=== PATIENT | male | born 1970 | race Caucasian/White ===

== ENCOUNTER 2017-10-05 17:02 | Emergency (ER) | payer OTHER ==
[2017-10-05 17:20] VITALS: BP 123/73
[2017-10-05] MEDS ORDERED: Albuterol 2.5 MG/3 ML NEB.SOL* (0.083%) INH ONE (17:21)
--- NOTE | 2017-10-05 17:27 | UC ---
Shortness of Breath HPI - HPI Summary HPI Summary: PATIENT HERE COMPLAINING OF GRADUALLY WORSENING SENSATION OF SHORTNESS OF BREATH. STATES SYMPTOMS ARE EVEN AT REST. FEELS LIKE HE IS UNABLE TO TAKE A FULL BREATH OF AIR AND EVERY MINUTE OR SO HAS TO TAKE A PURPOSEFUL DEEP BREATH IN. HE DENIES ANY OTHER SYMPTOMS. NO FEVER, COUGH, NASAL CONGESTION, NAUSEA, HEADACHE, SORE THROAT, EAR PAIN. NOT DIZZY OR LIGHTHEADED. HE DOES REPORT SOME BAND LIKE TIGHTNESS AROUND HIS CHEST THAT HAPPENS WHEN HE TAKES A DEEP BREATH. NON SMOKER. NO CHANGE IN SYMPTOMS WITH EXERTION. STATES THIS FEELS JUST LIKE HIS ASTHMA THAT HE HAD A KID BUT HASN'T HAD ANY ISSUES WITH THIS SINCE HE WAS A TEENAGER. DOES NOT HAVE AN INHALER AT HOME. - History of Current Complaint Chief Complaint: UCChestPain Stated Complaint: SHORTNESS OF BREATH Time Seen by Provider: 10/05/17 17:13 Hx Obtained From: Patient Onset/Duration: Gradual Onset, Lasting Days, Still Present Timing: Constant Current Severity: Moderate Dyspnea At: Rest Aggrevating Factors: Nothing Alleviating Factors: Nothing Associated Signs & Symptoms: Negative: Cough (Productive), Wheezing, Fever, Nasal Congestion - Allergy/Home Medications Allergies/Adverse Reactions: Allergies Allergy/AdvReac Type Severity Reaction Status Date / Time No Known Allergies Allergy Verified 10/05/17 18:33 PMH/Surg Hx/FS Hx/Imm Hx Respiratory History: Asthma - IN CHILDHOOD - Surgical History Surgical History: Yes Surgery Procedure, Year, and Place: 07/13/14 right hand foreign body removed-[facility] - Family History Known Family History: Positive: Hypertension, Diabetes - Social History Alcohol Use: Occasionally Substance Use Type: None Smoking Status (MU): Never Smoked Tobacco Review of Systems Constitutional: Negative ENT: Negative Respiratory: Shortness Of Breath Cardiovascular: Negative Gastrointestinal: Negative All Other Systems Reviewed And Are Negative: Yes Physical Exam Triage Information Reviewed: Yes Appearance: Well-Appearing, No Pain Distress, Well-Nourished Vital Signs: Initial Vital Signs Temp 98.7 F 10/05/17 17:16 Pulse 82 10/05/17 17:16 Resp 20 10/05/17 17:16 BP 123/73 10/05/17 17:16 Pulse Ox 100 10/05/17 17:16 Vital Signs Reviewed: Yes Eyes: Positive: Conjunctiva Clear ENT: Positive: Hearing grossly normal, Pharynx normal, TMs normal Neck: Positive: Supple, Nontender, No Lymphadenopathy Respiratory: Positive: Lungs clear, Normal breath sounds, No respiratory distress, No accessory muscle use, Other: - NOTED TO TAKE A DEEP PURPOSEFUL BREATH EVERY MINUTE OR SO Cardiovascular Exam: Normal Abdomen Description: Positive: Soft Musculoskeletal: Positive: No Edema Neurological: Positive: Alert Psychological: Positive: Age Appropriate Behavior Skin: Negative: rashes Diagnostics - Radiology CXR Xray Interpretation: No Acute Changes Radiology Interpretation Completed By: Radiologist - EKG Cardiac Rate: NL - 76BPM Cardiac Rhythm: Sinus: Normal Ectopy: None ST Segment: Normal Re-Evaluation - Re-Evaluation First Eval Re-Evaluation Time: 18:00 Change: Unchanged Shortness of Breath Dx - Course Course Of Treatment: NO CHANGE IN SYMPTOMS AFTER ALBUTEROL TREATMENT IN THE UC. CHEST X-RAY WAS UNREMARKABLE. GIVEN PATIENT'S CONTINUED SYMPTOMS OF SHORTNESS OF BREATH AND SENSATION THAT HE CANNOT GET A GOOD BREATH OF AIR WILL SEND TO THE ED FOR FURTHER EVALUATION. WHILE LOW RISK THERE CERTAINLY IS THE CONSIDERATION OF A PE. PT OFFERED TRANSPORT BY AMBULANCE BUT DECLINES. ADVISED THAT BY NOT TRAVELING IN A MONITORED SETTING HE COULD BE RISKING WORSENING OF HIS CONDITION THAT COULD POSE A THREAT TO HIS LIFE, HEALTH AND MEDICAL SAFETY. HE VERBALIZES UNDERSTANDING AND CONTINUES TO DECLINE AMBULANCE TRANSFER. - Differential Dx/Diagnosis Provider Diagnoses: SHORTNESS OF BREATH Discharge - Sign-Out/Discharge Documenting (check all that apply): Discharge/Admit/Transfer - Discharge Plan Condition: Stable Disposition: HOME Patient Education Materials: Shortness of Breath (ED) Referrals: Sydnee Briggs MD [Primary Care Provider] - If Needed Additional Instructions: GO DIRECTLY TO THE [facility] [place] [facility] FROM HERE FOR FURTHER EVALUATION. YOUR CHEST X-RAY TODAY WAS UNREMARKABLE. YOU HAD NO IMPROVEMENT IN SYMPTOMS AFTER AN ALBUTEROL NEBULIZER TREATMENT. UNCLEAR ETIOLOGY OF YOUR SYMPTOMS BUT RECOMMEND EVALUATION IN THE ED TO FURTHER EVALUATE FOR MORE SERIOUS UNDERLYING PATHOLOGY SUCH A BLOOD CLOT. YOU HAVE DECLINED AMBULANCE TRANSFER. BE ADVISED THAT BY NOT TRAVELING IN A MONITORED SETTING YOU COULD BE RISKING WORSENING OF YOUR CONDITION THAT COULD POSE A THREAT TO YOUR LIFE, HEALTH AND MEDICAL SAFETY. - Billing Disposition and Condition Condition: STABLE Disposition: Home
--- NOTE | 2017-10-05 17:38 | RAD ---
Indication: Shortness of breath. 2 views of the chest including dual energy PA views demonstrate no mediastinal shift. Heart is of normal size and configuration. Lung mireles are clear. No pleural fluid or pneumonia is identified. IMPRESSION: No active cardiopulmonary disease is noted.
== END 2017-10-05 18:10 | disposition home or self-care (01) ==
LOC: UCEAST 17:02
DX: R06.02 Shortness of breath (principal); J45.909 Unspecified asthma, uncomplicated; Z82.49 Family history of ischemic heart disease and other diseases of the circulatory system; Z83.3 Family history of diabetes mellitus
CPT/HCPCS: 71046; 93005; 99212; G0463

== ENCOUNTER 2017-10-05 18:28 | Emergency (ER) | payer OTHER ==
[2017-10-05] MEDS ORDERED: predniSONE TAB* 20 MG PO ONE (19:58)
--- NOTE | 2017-10-05 20:13 | ED ---
Marcellus Garcia Rebecca, scribed for Lois Chance MD on 10/05/17 at 1957 . Shortness of Breath - HPI Summary HPI Summary: Pt is a 46 y/o M referred from [facility] who presents to ED c/o SOB for 4-5 days. SOB characterized as dyspnea at rest. Sx unchanged by albuterol Tx. Denies fever , cough. When at [facility], he was given an albuterol treatment. PMHx asthma as a child, though he is unsure of what medications he used then, negative PMHx anxiety. - History of Current Complaint Chief Complaint: EDShortnessOfBreath Time Seen by Provider: 10/05/17 19:50 Hx Obtained From: Patient Onset/Duration: Lasting Days - 4-5 days, Still Present Dyspnea At: Rest Aggrevating Factors: Nothing Alleviating Factors: Nothing Associated Signs & Symptoms: Negative - Allergy/Home Medications Allergies/Adverse Reactions: Allergies Allergy/AdvReac Type Severity Reaction Status Date / Time No Known Allergies Allergy Verified 10/05/17 18:33 PMH/Surg Hx/FS Hx/Imm Hx Endocrine/Hematology History: Denies: Hx Diabetes, Hx Thyroid Disease Cardiovascular History: Denies: Hx Hypertension, Hx Pacemaker/ICD Respiratory History: Reports: Hx Asthma - CHILDHOOD Denies: Hx Chronic Obstructive Pulmonary Disease (COPD) GI History: Denies: Hx Ulcer History: Denies: Hx Renal Disease Musculoskeletal History: Denies: Hx Arthritis Sensory History: Denies: Hx Contacts or Glasses, Hx Hearing Aid Opthamlomology History: Denies: Hx Contacts or Glasses Psychiatric History: Denies: Hx Anxiety, Hx Panic Disorder - Surgical History Surgery Procedure, Year, and Place: 07/13/14 right hand foreign body removed-[facility] Infectious Disease History: No Infectious Disease History: Denies: Hx Clostridium Difficile, Hx Hepatitis, Hx Human Immunodeficiency Virus (HIV), Hx of Known/Suspected MRSA, Hx Shingles, Hx Tuberculosis, Hx Known/ Suspected VRE, Hx Known/Suspected VRSA, History Other Infectious Disease, Traveled Outside the [place] in Last 30 Days - Family History Known Family History: Positive: Hypertension, Diabetes - Social History Alcohol Use: Occasionally Substance Use Type: Reports: None Hx Tobacco Use: No Smoking Status (MU): Never Smoked Tobacco Review of Systems Negative: Fever Positive: Shortness Of Breath. Negative: Cough All Other Systems Reviewed And Are Negative: Yes Physical Exam - Summary Physical Exam Summary: VITAL SIGNS: Reviewed. GENERAL: ~Patient is a well-developed and nourished male who is lying comfortable in the stretcher. Patient is not in any acute respiratory distress. HEAD AND FACE: No signs of trauma. No ecchymosis, hematomas or skull depressions. No sinus tenderness. EYES: PERRLA, EOMI x 2, No injected conjunctiva, no nystagmus. EARS: Hearing grossly intact. Ear canals and tympanic membranes are within normal limits. MOUTH: Oropharynx within normal limits. NECK: Supple, trachea is midline, no adenopathy, no JVD, no carotid bruit, no c- spine tenderness, neck with full ROM. CHEST: Symmetric, no tenderness at palpation LUNGS: Clear to auscultation bilaterally. No wheezing or crackles. CVS: Regular rate and rhythm, S1 and S2 present, no murmurs or gallops appreciated. ABDOMEN: Soft, non-tender. No signs of distention. No rebound no guarding, and no masses palpated. Bowel sounds are normal. EXTREMITIES: FROM in all major joints, no edema, no cyanosis or clubbing. NEURO: Alert and oriented x 3. No acute neurological deficits. Speech is normal and follows commands. SKIN: Dry and warm Triage Information Reviewed: Yes Vital Signs On Initial Exam: Initial Vitals Temp Pulse Resp BP Pulse Ox 98.2 F 74 20 121/85 100 10/05/17 18:29 10/05/17 18:29 10/05/17 18:29 10/05/17 18:29 10/05/17 18:29 Vital Signs Reviewed: Yes Diagnostics - Vital Signs Vital Signs Temp Pulse Resp BP Pulse Ox 10/05/17 18:29 98.2 F 74 20 121/85 100 - Laboratory Lab Statement: Any lab studies that have been ordered have been reviewed, and results considered in the medical decision making process. Course/Dx - Course Assessment/Plan: Pt is a 46 y/o M with a PMHx of asthma as a child referred from [facility] who presents to ED c/o dyspnea at rest for 4-5 days, treated with albuterol [employer], negative for fever and cough. In the ED course, he was given a Ventolin inhaler. Pt will be D/C to home with Dx of asthma and Rx for Prednisone. He understands and agrees. - Diagnoses Provider Diagnoses: Asthma Discharge - Sign-Out/Discharge Documenting (check all that apply): Discharge/Admit/Transfer - Discharge Plan Condition: Stable Disposition: HOME Prescriptions: predniSONE TAB* [Deltasone 20 MG TAB*] 40 mg PO DAILY #10 tab Patient Education Materials: Asthma (ED) Referrals: Sydnee Briggs MD [Primary Care Provider] - 3 Days Additional Instructions: RETURN TO ED FOR ANY NEW OR WORSENING SYMPTOMS. - Billing Disposition and Condition Condition: STABLE Disposition: Home The documentation as recorded by the Marcellus chapman Rebecca accurately reflects the service I personally performed and the decisions made by , Lois Chance MD.
[2017-10-05 20:27] VITALS: BP 115/76
[2017-10-06] MEDS ORDERED: Albuterol HFA INHALER* 8 gm MDI INH SCH (01:00)
== END 2017-10-05 20:29 | disposition home or self-care (01) ==
LOC: ED 18:28
DX: J45.909 Unspecified asthma, uncomplicated (principal); R06.02 Shortness of breath
CPT/HCPCS: 99282; A9270-GY; J7512

== ENCOUNTER 2017-10-23 08:26 | Emergency (ER) | payer OTHER ==
[2017-10-23] MEDS ORDERED: Ibuprofen TAB* 600 MG PO ONE (08:56)
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
[2017-10-23 09:17] VITALS: BP 126/81
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
== END 2017-10-23 09:50 | disposition home or self-care (01) ==
LOC: ED 08:26
DX: S09.90XA Unspecified injury of head, initial encounter (principal); V43.52XA Car driver injured in collision with other type car in traffic accident, initial encounter; Y92.410 Unspecified street and highway as the place of occurrence of the external cause
CPT/HCPCS: 70450; 72125; 99282; A9270-GY

== ENCOUNTER 2018-10-17 10:28 | Emergency (ER) | payer OTHER ==
[2018-10-17 10:44] VITALS: BP 122/76
[2018-10-17] MEDS ORDERED: Ibuprofen TAB* 600 MG PO ONE (11:08)
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
== END 2018-10-17 13:05 | disposition home or self-care (01) ==
LOC: UCEAST 10:28
DX: M75.31 Calcific tendinitis of right shoulder (principal); M47.812 Spondylosis without myelopathy or radiculopathy, cervical region
CPT/HCPCS: 72125; 99213; A9270-GY; G0463